=== PATIENT | male | born 1955 | race Caucasian/White ===

== ENCOUNTER 2020-10-20 13:30 | Emergency (ER) | payer OTHER, SELFPAY ==
--- NOTE | ~2020-10-20 | XR_ITS ---
EXAMINATION: XR finger 5th LT min 2V DATE: 10/20/2020 13:46 INDICATION: Pain and swelling at the left fifth proximal interphalangeal joint TECHNIQUE: Dorsal palmar, lateral and 2 oblique views of the left fifth digit were obtained COMPARISON: None FINDINGS: Bone alignment is normal. No fracture. 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 Dorsal side predominant soft tissue swelling about the fifth pro ximal interphalangeal joint. IMPRESSION: 1. No acute osseous abnormality. Reviewed, dictated and finalized at location A.
[2020-10-20 13:35] VITALS: BP 127/81; PULSE 78; RESP 16; TEMP 37.2; O2SAT 96
--- NOTE | 2020-10-20 14:16 | ED.UPPEXIN ---
HPI - Extremity Injury (Upper) General Chief Complaint: Extremity Injury, Upper Stated Complaint: INJURED FINGER Time Seen by Provider: 10/20/20 14:10 Source: patient and RN notes reviewed Mode of arrival: ambulatory Limitations: no limitations History of Present Illness HPI narrative: Patient presents today complaining of pain and swelling to his left fifth finger. Approximately 2 weeks ago, patient hyperextended his finger while getting out of a golf cart. He has been icing and elevating the finger every day. He took some Tylenol yesterday. States pain and swelling is persisting. He does continue to golf and do normal activities. Pain increases with flexion and extension. Pain is located in the PIP. MD complaint: injury to: left and finger Related Data Allergies Allergy/AdvReac Type Severity Reaction Status Date / Time No Known Allergies Allergy Unverified 10/20/20 13:34 Review of Systems Review of Systems: Narrative: CONSTITUTIONAL: Denies body aches, fever, chills, or sweats. EYES: Denies visual changes, redness, or discharge. ENT: Denies rhinorrhea, congestion, sore throat, or otalgia. CARDIOVASCULAR: Denies chest pain, palpitations, or edema. RESPIRATORY: Denies cough or dyspnea. GASTROINTESTINAL: Denies abdominal pain, nausea, vomiting, or diarrhea. GENITOURINARY: Denies dysuria or hematuria. SKIN: Denies rash, itching, or wounds. MUSCULOSKELETAL: Denies back pain, or myalgia. + Left fifth finger injury NEUROLOGIC: Denies headache, numbness, tingling, or weakness. PSYCH: Denies depression or anxiety. [facility] Social History Social History (Updated 09/12/20 @ 09:35 by Apryl Mckay [facility]) Smoking status: Never smoker Alcohol intake: current Comments At time of signature, I have reviewed and agree with nursing past medical, surgical, social and family history unless otherwise noted. Please see nursing chart for further information. There is no relevant family history pertinent to the presenting complaint Exam Narrative: Exam Narrative: GENERAL: Well-appearing, well-nourished, and in no acute distress. HEAD: Normocephalic, atraumatic. EYES: EOMI. No redness or drainage. Conjunctivae normal. ENT: Mucous membranes pink and moist. NECK: Normal AROM. CHEST: No respiratory distress. EXTREMITIES: Left fifth finger: Tenderness and mild edema to the PIP. Pain to the PIP with AROM. AROM is slightly limited due to swelling. Distal sensation intact. Capillary refill normal. DIP is nontender. MCP is nontender. SKIN: Warm, dry, no rash. Capillary refill normal. Normal skin turgor. NEURO: No focal deficits. Alert and oriented x3. Gait steady. PSYCH: Normal affect. No signs of depression or anxiety. Course Vital Signs Vital signs: Vital Signs Temperature 99.0 F 10/20/20 13:35 Pulse Rate 78 10/20/20 13:35 Respiratory Rate 16 10/20/20 13:35 Blood Pressure 127/81 10/20/20 13:35 Pulse Oximetry 96 10/20/20 13:35 Temperature 99.0 F 10/20/20 13:35 Pulse Rate 78 10/20/20 13:35 Respiratory Rate 16 10/20/20 13:35 Blood Pressure 127/81 10/20/20 13:35 Pulse Oximetry 96 10/20/20 13:35 Reviewed. Pt has been instructed to follow up with his PCP regarding his elevated blood pressure today. MDM - Extremity Injury (Upper) Differential Diagnosis Differential diagnosis: Likely other (Finger sprain, contusion, finger fracture) Imaging Data Radiologist's impression: ITS Impressions Finger X-Ray 10/20/20 14:01 IMPRESSION: 1. No acute osseous abnormality. Critical Care Time Critical Care Time Critical Care Time: No Discharge Plan Discharge Clinical Impression: Sprain of finger of left hand Qualifiers: Encounter type: initial encounter Finger: little finger Sprain of finger site: interphalangeal joint Qualified Code(s): S63.637A - Sprain of interphalangeal joint of left little finger, initial encounter Patient Disposition: Home, Self-Care Condition:
== END 2020-10-20 14:20 | disposition home or self-care (01) ==
PROVIDERS: Emergency Provider Nurse Practitioner; PCP Family Medicine
DX: S63.637A Sprain of interphalangeal joint of left little finger, initial encounter (principal); X50.9XXA Other and unspecified overexertion or strenuous movements or postures, initial encounter; E11.9 Type 2 diabetes mellitus without complications; Z85.820 Personal history of malignant melanoma of skin
CPT/HCPCS: 73140; 99213; G0463